=== PATIENT | female | born 1980 | race Caucasian/White ===

== ENCOUNTER 2018-01-21 05:56 | Day surgery (SDC) | payer OTHER ==
[2018-01-21] MEDS ORDERED: CEFAZOLIN 2 GM/50 ML (PMX) 50 ML IVPB (06:00)
[2018-01-21] MEDS ORDERED: LACTATED RINGER'S 1,000 ML IV* (06:00)
[2018-01-21 07:14] LABS: ADD MAN DIFF? NO
[2018-01-21 07:21] LABS: WHITE BLOOD COUNT 8.8 10^3/ul (4.8-10.8)
[2018-01-21 07:21] LABS: BASOPHIL # 0.1 10^3/ul (0.0-0.1); BASOPHILS % 0.6 % (0.0-2.0); EOSINOPHILS % 0.5 % (0.0-7.0); HEMATOCRIT 39.8 % (37.0-47.0); HEMOGLOBIN 13.1 g/dl (12.0-16.0); LYMPHOCYTES % 22.5 % (15.0-51.0); MEAN CORPUSCULAR HEMOGLOBIN 26.6 pg (29.0-33.0); MEAN CORPUSCULAR HGB CONC 32.9 g/dl (32.0-37.0); MEAN CORPUSCULAR VOLUME 80.9 fl (82.0-101.0); MEAN PLATELET VOLUME 10.6 fl (7.4-10.4); MONOCYTE # 0.6 10^3/ul (0.3-0.9); MONOCYTES % 6.3 % (0.0-11.0); NEUTROPHIL # 6.1 10^3/ul (1.6-7.5); NEUTROPHILS % 69.8 % (39.0-77.0); PLATELET COUNT 248 10^3/UL (140-415); RED BLOOD COUNT 4.92 10^6/ul (4.20-5.40); RED CELL DISTRIBUTION WIDTH 13.1 % (11.5-14.5)
[2018-01-21 07:40] LABS: PROTIME 13.3 Sec (11.9-14.9)
[2018-01-21 07:41] LABS: PARTIAL THROMBOPLASTIN TIME 32.8 Sec (25.0-35.0)
[2018-01-21] MEDS ORDERED: MIDAZOLAM 1 MG/ML 2 ML INJ (07:51)
[2018-01-21] MEDS ORDERED: FENTAnyl 50 MCG/ML VIAL (07:51)
[2018-01-21] MEDS: LIDOCAINE 1%/EPI 30 ML INJ (08:18)
[2018-01-21] MEDS ORDERED: PROPOFOL 20 ML (08:35)
[2018-01-21] MEDS ORDERED: ROCURONIUM 50 MG INJ (08:35)
[2018-01-21] MEDS ORDERED: CEFAZOLIN 1 GM INJ (08:36)
[2018-01-21] MEDS ORDERED: LIDOCAINE 2% (SDV) 5 ML INJ (08:36)
[2018-01-21] MEDS ORDERED: NEOSTIGMINE 3 MG/3 ML SYRINGE (08:36)
[2018-01-21] MEDS ORDERED: GLYCOPYRROLATE 0.4 MG INJ (08:36)
[2018-01-21] MEDS ORDERED: ONDANSETRON 4 MG INJ (08:36)
[2018-01-21] MEDS ORDERED: morphine 10 MG INJ (08:40)
[2018-01-21] MEDS ORDERED: MEPERIDINE 25 MG INJ IV (09:00)
[2018-01-21] MEDS ORDERED: METOCLOPRAMIDE 10 MG INJ IV (09:00)
[2018-01-21] MEDS ORDERED: DIPHENHYDRAMINE 50 MG INJ IV (09:00)
[2018-01-21] MEDS ORDERED: FENTAnyl 50 MCG/ML VIAL IV (09:00)
[2018-01-21] MEDS ORDERED: HYDROmorphONE (0.2 MG/ML) 10ML SYG IV ×2 (09:00)
[2018-01-21] MEDS: ONDANSETRON 4 MG INJ IV (11:13)
== END 2018-01-21 11:20 | disposition home or self-care (01) ==
LOC: SDS 05:56
DX: Z30.2 Encounter for sterilization (principal)
CPT/HCPCS: 58670; 84703; 85025; 85610; 85730